=== PATIENT | female | born 1990 | race Two or more races ===

== ENCOUNTER 2018-06-11 09:30 | Outpatient (CLI) | payer OTHER | END 2018-06-11 09:32 | disposition home or self-care (01) | LOC: LAB 09:30 | DX: M25.50 Pain in unspecified joint (principal); M79.1 Myalgia; E07.89 Other specified disorders of thyroid ==

== ENCOUNTER 2019-01-24 09:50 | Outpatient (CLI) | payer OTHER | END 2019-01-24 13:33 | disposition HB | LOC: LAB 09:50 | DX: M25.50 Pain in unspecified joint (principal); M79.1 Myalgia; E04.2 Nontoxic multinodular goiter; E55.9 Vitamin D deficiency, unspecified; L65.8 Other specified nonscarring hair loss ==

== ENCOUNTER 2019-02-05 10:29 | Outpatient (CLI) | payer OTHER | END 2019-02-05 11:05 | disposition home or self-care (01) | LOC: LAB 10:29 | DX: E11.40 Type 2 diabetes mellitus with diabetic neuropathy, unspecified (principal); E06.9 Thyroiditis, unspecified; M35.00 Sjogren syndrome, unspecified ==

== ENCOUNTER → 2019-04-16 11:02 | Outpatient (CLI) | payer OTHER | END | disposition home or self-care (01) | LOC: LAB 11:02 | DX: E07.89 Other specified disorders of thyroid (principal); M81.0 Age-related osteoporosis without current pathological fracture ==